=== PATIENT | female | born 1965 | race Caucasian/White ===

== ENCOUNTER → 2019-01-11 08:29 | Outpatient (CLI) | payer OTHER, MEDICAID, SELFPAY ==
--- NOTE | 2019-01-11 | DI.MRI.S_ITS ---
PROCEDURE: MR HEAD/BRAIN WO CON INDICATIONS: Other abnormal findings on diagnostic imaging of c TECHNIQUE: Noncontrast axial T1 spin echo, axial T2 fast spin echo, sagittal and axial FLAIR, coronal T2 fast spin echo, axial gradient echo, axial diffusion and ADC through the brain. COMPARISON: Outside Film, MR, MR CERVICAL SPINE WO CON, 04/30/2016, 12:30. Outside Film, MR, MR BRAIN W&WO CON, 05/19/2016, 8:00. FINDINGS: Image quality: Excellent. CSF Spaces: Basal cisterns are patent. No extra-axial fluid collections. Ventricles are normal in size and shape. Brain: There are multiple patch-like foci of T2 hyperintensity in periventricular white matter. A left frontal white matter lesion measures 7 mm, unchanged compared to 05/19/2016. There is a callosal lesion involving the posterior body of the corpus callosum on the right, minimally changed given slightly different technique. Ill defined pericallosal lesions are seen bilaterally, unchanged. No intracranial masses or hemorrhage. Mukherjee/white matter interface is normal. Brainstem appears normal. Diffusion-weighted images demonstrate no acute ischemic insult. No chronic ischemic insults. Normal intravascular flow voids are present. Skull and face: Calvarium has normal marrow signal. Orbits appear normal. Sinuses: Sinuses and mastoids are clear. IMPRESSION: There are multiple foci of patch-like T2 hyperintense lesions in the periventricular white matter bilaterally as described, minimally changed compared to the last exam on . The most likely diagnosis is multiple sclerosis. Dictated by: Rosemary Jacome M.D. on 01/11/2019 at 10:07 Approved by: Rosemary Jacome M.D. on 01/11/2019 at 10:35
--- NOTE | 2019-01-11 | DI.MRI.S_ITS ---
PROCEDURE: MR CERVICAL SPINE WO CON INDICATIONS: Other abnormal findings on diagnostic imaging of c TECHNIQUE: Noncontrast sagittal T1 spin echo and T2 fast spin echo, sagittal STIR, foraminal oblique sagittal T2 fast spin echo, and axial gradient echo or T2 fast spin echo through the cervical spine. COMPARISON: [facility], MR, MR HEAD/BRAIN WO CON, 01/11/2019, 9:04. FINDINGS: Image quality: Diagnostic. Alignment and Curvature: There is mild reversal of the normal cervical lordosis, with the apex at the C5-C6 level. Bone Marrow: Marrow demonstrates normal overall signal. Spinal Cord: Visualized spinal cord has normal size and signal. No cerebellar tonsillar herniation. Paraspinous Soft Tissues: No paravertebral masses. Prevertebral soft tissues are normal in thickness. C2-C3: Normal appearance. C3-C4: The disc height and disc signal are relatively well-preserved. Mild to moderate disc osteophyte complex is seen. Mild facet joint hypertrophy is seen. There is mild left-sided and no right-sided neural foraminal narrowing seen. Mild central canal narrowing is seen. C4-C5: Mild loss of disc height is seen. Loss of disc signal is seen. At least moderate disc osteophyte complex is seen, which is eccentric to the left. There is a central/right disc osteophyte protrusion, as on series 4 image 25. Uncovertebral joint hypertrophy is seen at this level. Mild facet joint hypertrophy is seen. Moderate to severe bilateral neural foraminal narrowing is seen, left worse than right. Moderate to severe central canal narrowing is seen, with mild mass effect upon the ventral spinal cord. C5-C6: Mild to moderate loss of disc height and disc signal can be seen. Moderate disc osteophyte complex is seen, with a central disc osteophyte protrusion, as on series 4 image 29. Uncovertebral joint hypertrophy is seen at this level. Moderate to severe bilateral neural foraminal narrowing is seen. Moderate to severe central canal narrowing is seen, with mild mass effect upon the ventral spinal cord. C6-C7: Mild to moderate loss of disc height and disc signal are seen. Moderate disc osteophyte complex is seen, with a central disc osteophyte protrusion, as on series 4 image 33. Uncovertebral joint hypertrophy is seen at this level. Mild facet joint hypertrophy is seen. There is at least moderate left-sided and minimal right-sided neural foraminal narrowing seen. Moderate central canal narrowing is seen. There is minimal mass effect upon the ventral spinal cord. C7-T1: Mild to moderate loss of disc height and disc signal are seen. [id number] disc osteophyte complex is seen. There is mild bilateral neural foraminal narrowing seen, left worse than right. No significant central canal narrowing is seen. IMPRESSION: Multiple levels of cervical spine degenerative changes are seen, which are most prominent at the C5-C6 level. Dictated by: Jf Antony M.D. on 01/11/2019 at 9:30 Approved by: Jf Antony M.D. on 01/11/2019 at 9:36
== END ==
PROVIDERS: PCP Physician Assistant Medical; Visit Provider Psychiatry & Neurology Neurology
DX: R90.89 Other abnormal findings on diagnostic imaging of central nervous system (principal); M47.22 Other spondylosis with radiculopathy, cervical region; G95.9 Disease of spinal cord, unspecified
CPT/HCPCS: 70551; 72141